=== PATIENT | male | born 1955 | race African-American/Black ===

== ENCOUNTER → 2018-02-21 | Outpatient (CLI) | payer MEDICARE, OTHER ==
[~2018-02-21] MED LIST: ASPI81CH43 PO; ATOR1TAB PO; CYCL1TAB18 PO; FURO40TA PO; GABA-339 PO; HYDR-531 PO; LEVO250T19 PO; MET50T PO; POTA20TA53 PO; SACU1TAB PO
--- NOTE | 2018-02-21 11:13 | NUR ---
PATIENT CAME FROM [facility] S[facility] WITH ORDERS, PATIENT FIRST VISIT TO [facility].
[2018-02-21 12:00] VITALS: BP 161/68
--- NOTE | 2018-02-21 12:00 | NUR ---
[facility] Discharge Instructions See e-MAR for any mediations given with this visit. Patient education given on disease process. Patient verbalized understanding. Previous labs reviewed. Patient discharged in stable condition with after care instructions and follow up appointment ON 03/07/18. NOTE CARDIODYNAMICS PERFORMED BY ROBIN ESPINOZA, RESULTS REVIEWED WITH PT BY TOMMIE FINLEY. BASELINE EKG DONE. PRESCRIPTION FOR ANXIETY MEDICATION GIVEN.
[2018-02-21 16:11] LABS: Potassium 3.8 mmol/L (3.5-5.1)
[2018-02-21 16:18] LABS: Albumin 2.9 g/dL (3.4-5.0); BUN/Creatinine Ratio 13.7; Bilirubin, Total 0.5 mg/dL (0.2-1.0); Calcium 7.8 mg/dL (8.5-10.1); Magnesium 2.1 mg/dL (1.6-2.6); Total Protein 6.6 g/dL (6.4-8.2)
== END | disposition home or self-care (01) ==
LOC: CHF HDHVI 11:19
PROVIDERS: ATTEND Internal Medicine Cardiovascular Disease
DX: E83.40 Disorders of magnesium metabolism, unspecified (principal); I11.0 Hypertensive heart disease with heart failure; I50.9 Heart failure, unspecified; F41.9 Anxiety disorder, unspecified; R94.31 Abnormal electrocardiogram [ECG] [EKG]
CPT/HCPCS: 36415; 80053; 83735; 93005; 93701; G0463